=== PATIENT | male | born 1960 | race African-American/Black ===

== ENCOUNTER 2018-10-13 05:34 | Inpatient (IN) ==
--- NOTE | 2018-09-30 08:16 | PAT Medication Instructions ---
Medication Instructions Date of Service September 30, 2018 Home Medications alfuzosin ER 10 mg tablet,extended release 24 hr 10 mg PO QAM atorvastatin 20 mg tablet 20 mg PO QAM fluoxetine 20 mg capsule 20 mg PO QAM losartan 25 mg tablet 25 mg PO QAM montelukast 10 mg tablet 10 mg PO QAM DO NOT take the morning of surgery losartan 25 mg tablet 25 mg PO QAM montelukast 10 mg tablet 10 mg PO QAM Take morning of surgery With a small sip of water, OTHERWISE NOTHING TO EAT OR DRINK AFTER MIDNIGHT: alfuzosin ER 10 mg tablet,extended release 24 hr 10 mg PO QAM atorvastatin 20 mg tablet 20 mg PO QAM fluoxetine 20 mg capsule 20 mg PO QAM Other Notes If you have any questions please call us at [phone] or [phone] or [phone] or [phone]
--- NOTE | 2018-09-30 09:24 | Anesthesiology Consultation ---
Date of Service September 30, 2018 Assessment & Plan (1) Encounter for pre-operative examination: Chart Review Chart Review: Acceptable Risk for Surgery and Patient seen in Pre Admission Testing Teaching & Discussion Instructed NPO after midnight before surgery, except medications with 15 cc of water. Medication instructions provided according to the PAT guidelines. History Surgery Operation Date: 10/13/18 12:15 Proposed Procedures p Laparoscopic Robotic Assisted Radical Retropubic Prostatectomy, Possible Open, Possible Pelvic Lymph Node Dissection, Possible Suprapubic Cath Placement - Fausto Oscar MD Height/Weight Height: 5 ft 5 in Weight: 85.6 kg Allergies Allergy/AdvReac Type Severity Reaction Status Date / Time nickel Allergy Unknown ITCHINESS Verified 09/29/18 14:21 phenytoin [From Dilantin] Allergy Unknown BAD Unverified 09/29/18 13:57 REACTION TOO, WBC COUNT WENT HIGH Additional Notes: *pt was given Dilantin for suspected seizure but ultimately seizure was ruled out. Medications Home Medications Medication Instructions Recorded Confirmed Last Taken alfuzosin ER 10 mg tablet,extended 10 mg PO QAM 09/16/18 09/29/18 09/29/18 release 24 hr atorvastatin 20 mg tablet 20 mg PO QAM 09/16/18 09/29/18 09/29/18 fluoxetine 20 mg capsule 20 mg PO QAM 09/16/18 09/29/18 09/29/18 losartan 25 mg tablet 25 mg PO QAM 09/16/18 09/29/18 09/29/18 montelukast 10 mg tablet 10 mg PO QAM 09/16/18 09/29/18 09/29/18 Past Medical History Medical History Anxiety and depression Chronic sinus infection History of positive PPD HX CHEST XRAY, NO HX BIOPSY - S/p prophylactic tx with INH DENIES HX OF ACTIVE TB INFECTION Hypercholesteremia Hypertension Pre-diabetes Prostate cancer Diagnosed 05/20/18 - King 4+5, 3+4, 3+3 Snores Pt reports he was supposed to have a sleep study years ago but never did. Exercise / Class Metabolic Activity II 4-5 Yardwork/Stairs/Walk up hill Past Family History Family History Other Family history of cancer Past Surgical History Surgical History History of appendectomy History of colonoscopy History of oral surgery WISDOM TEETH History of oral surgery 5 TEETH EXTRACTION Past Anesthesia History No Hx of Anesthesia Complications and No Family Hx of Anesthesia Complications History of PONV No Hx of PONV and No Hx of Motion Sickness Social History Smoking Status: Current every day smoker tobacco type: cigarettes Smoking cigarettes per day: 12-15 CIGS/DAY - ADVISED NPO Do You Dip or Chew Tobacco: No Hx Alcohol Use: Yes Alcohol type: beer alcohol intake frequency: 3 or more drinks per day Hx Substance Use: Yes substance use type: marijuana Last Used Substance Other:: LAST USE 09/28/18, AVERAGE USE ONCE A DAY Review of Systems Pt denies any recent chest pain, shortness of breath, palpitations, cough, fever or URI. +chronic sinus congestion Physical Exam Vital Signs BP: 128/82 P: 70bpm SPO2: 98% RA T: 98.1 F R: 12 ENMT Mouth: no dental restorations, no chipped teeth and no loose teeth Thyromental Distance: > or= 3.5 Finger Breadths (3.5) Mallampati Class: III Missing several molars. Neck normal visual inspection; neck extension not limited Respiratory normal respiratory effort Auscultation: lungs clear to auscultation bilaterally Cardiovascular Rate/Rhythm: regular rate and regular rhythm Heart Sounds: no murmur Vessels: no carotid bruit Extremities: no edema Testing Laboratory Results 09/30/18 09:30 09/30/18 09:30 Urine Color Yellow 09/30/18 09:30 Urine Appearance Clear (Clear) 09/30/18 09:30 Urine pH 7.0 (4.5-7.5) 09/30/18 09:30 Ur Specific [place] 1.008 (1.000-1.030) 09/30/18 09:30 Urine Protein Negative (Negative) 09/30/18 09:30 Urine Glucose (UA) Negative (Negative) 09/30/18 09:30 Urine Ketones Negative (Negative) 09/30/18 09:30 Urine Nitrite Negative (Negative) 09/30/18 09:30 Ur Leukocyte Esterase Negative (Negative) 09/30/18 09:30 Blood Type O Positive 09/30/18 09:30 Antibody Screen NEGATIVE 09/30/18 09:30 Electrocardiogram Date: 09/30/18 Findings: + NSR @ (64) Minimal voltage criteria for LVH, may be normal variant. Chest X-Ray Date: 09/30/18 Findings: + NAD
--- NOTE | 2018-09-30 09:45 | XRay Report ---
TWO VIEW CHEST CLINICAL HISTORY: Preoperative examination. FINDINGS: PA and lateral chest radiographs are compared to study dated 01/09/2008. The cardiomediastin al silhouette is unremarkable. The lungs and pleural spaces are clear. There is no pneumothorax. The bony thorax appears intact. IMPRESSION: No active disease in the chest. Electronically signed by: Álvaro De La O M.D. 09/30/2018 9:44 AM
[2018-09-30 10:54] LABS: Basophils # (auto) 0.06 K/uL (0-0.2); Basophils % (auto) 0.6 %; Eosinophils # (auto) 0.06 K/uL (0-0.5); Eosinophils % (auto) 0.6 %; Hematocrit (blood only) 41.4 % (42-52); Hemoglobin 14.1 g/dL (14.0-18.0); Immature Granulocytes # (auto) 0.04 K/uL (0.00-0.02); Immature Granulocytes % (auto) 0.4 %; Lymphocytes # (auto) 2.23 K/uL (1.2-3.4); Mean Corpuscular Hgb Conc 34.1 g/dL (32-36); Mean Corpuscular Volume 90.8 fL (80-100); Mean Platelet Volume 9.2 fL (7.4-10.4); Monocytes # (auto) 0.81 K/uL (0.11-0.59); Monocytes % (auto) 8.7 %; Neutrophils # (auto) 6.11 K/uL (1.4-6.5); Neutrophils % (auto) 65.7 %; Platelet Count 230 K/uL (130-400); RDW Coefficient of Variation 12.8 % (11.5-14.5); RDW Standard Deviation 42.3 fL (36.4-46.3); Red Blood Count 4.56 M/uL (4.7-6.1); White Blood Count 9.31 K/uL (4.8-10.8)
[2018-09-30 11:01] LABS: Appearance Urine Clear (Clear); Bilirubin Urine Negative (Negative); Blood Urine Negative (Negative); Color Urine Yellow; Glucose Urine UA Negative (Negative); Ketones Urine Negative (Negative); Leukocyte Esterase Urine Negative (Negative); Nitrite Urine Negative (Negative); Protein Urine Negative (Negative); Specific Gravity Urine 1.008 (1.000-1.030); Urobilinogen Urine Negative (Negative)
[2018-09-30 11:02] LABS: BUN Creatinine Ratio 18.2 (10-20); Calcium 9.3 mg/dl (8.5-10.1); Creatinine Clr Calc Pharmacy 93.2 ml/min; Est GFR (African American) 110.5; Est GFR (Non-African American) 95.4; Potassium 4.1 mmol/L (3.5-5.1)
[2018-10-13] MEDS ORDERED: HEPARIN SOD 5,000 UNIT/0.5 ML VIAL SQ SCH (06:00)
[2018-10-13] MEDS ORDERED: CEFAZOLIN 2000MG 2,000 MG/15 ML SYR IV SCH (06:00)
[2018-10-13] MEDS ORDERED: LR 15ML/HR IV SCH (06:00)
[2018-10-13] MEDS ORDERED: fentaNYL citrate 100 MCG/2 ML VIAL ONE ×2 (06:40→10:54)
[2018-10-13] MEDS ORDERED: HYDROmorphone INJ 2 MG/ML SYR/VIAL ONE (06:40)
[2018-10-13] MEDS ORDERED: SODIUM CHLORIDE 0.9% INJ 10 ML VIAL ONE ×2 (06:40→10:20)
[2018-10-13] MEDS ORDERED: MIDAZOLAM HCL 1 MG/ML 2ML VIAL ONE (06:40)
[2018-10-13] MEDS ORDERED: ACETAMINOPHEN 1000 MG/100 ML IV IV ONE (06:47)
[2018-10-13] MEDS ORDERED: KETAMINE HCL INJ 50 MG/ML 10 ML VIAL ONE (06:49)
[2018-10-13] MEDS ORDERED: PROPOFOL IV EMULSION 10 MG/ML 20 ML VIAL IV ONE (06:51)
[2018-10-13] MEDS ORDERED: ARTIFICIAL TEARS OP OINT 3.5 GM TUBE ONE (06:51)
[2018-10-13] MEDS ORDERED: LIDOCAINE HCL 2% 2 ML VIAL/AMP(20MG/ML) INFIL ONE (06:51)
[2018-10-13] MEDS ORDERED: DEXAMETHASONE SOD INJ 4 MG/ML VIAL ONE (06:51)
[2018-10-13] MEDS ORDERED: LARYING-O-JET KIT (LTA) ONE (06:51)
[2018-10-13] MEDS ORDERED: ROCURONIUM BROMIDE 10 MG/ML 5 ML VIAL ONE ×2 (06:51→08:36)
[2018-10-13] MEDS ORDERED: ONDANSETRON INJ 2 MG/ML 2 ML VIAL ONE (06:51)
[2018-10-13] MEDS ORDERED: BUPIVACAINE 0.5 % 5 MG/1 ML MPF 30ML VIAL ONE (06:56)
[2018-10-13] MEDS ORDERED: PROMETHAZINE HCL 6.25 MG in SODIUM CHLORIDE 0.9% 50 ML IV PRN (07:24)
[2018-10-13] MEDS ORDERED: ONDANSETRON INJ 2 MG/ML 2 ML VIAL IV PRN ×2 (07:24→14:00)
[2018-10-13] MEDS ORDERED: ATROPINE SULFATE 0.1 MG/ML 10ML SYR IV PRN (07:24)
[2018-10-13] MEDS ORDERED: fentaNYL citrate 100 MCG/2 ML VIAL IV PRN (07:24)
[2018-10-13] MEDS ORDERED: ePHEDrine sulfate 50 MG/ML AMP IV PRN (07:24)
--- NOTE | 2018-10-13 07:27 | History & Physical Bridge Note ---
Date of Service October 13, 2018 History & Physical Bridge Note I have examined the patient, reviewed the History & Physical and in the interval since the performance of the History & Physical I have noted the following changes of clinical significance: no changes noted
[2018-10-13] MEDS ORDERED: BELLADONNA/OPIUM SUPP 60 MG SUPP PR ONE (08:05)
[2018-10-13] MEDS ORDERED: NEOSTIGMINE METHYLSULFATE 5 MG/5 ML SYR ONE (08:28)
[2018-10-13] MEDS ORDERED: GLYCOPYRROLATE 0.2 MG/ML VIAL ONE (08:28)
[2018-10-13] MEDS ORDERED: BELLADONNA/OPIUM SUPP 60 MG SUPP PR PRN (09:44)
[2018-10-13] MEDS ORDERED: CEFAZOLIN 250 MG/ML 1 GM VIAL ONE (10:20)
[2018-10-13] MEDS ORDERED: ePHEDrine sulfate 50 MG/ML SYR ONE (10:24)
[2018-10-13] MEDS ORDERED: PHENYLEPHRINE 100MCG/ML 5ML SYR ONE (10:24)
[2018-10-13] MEDS ORDERED: FLOSEAL HEMOSTATIC MATRIX 10ML TOP ONE (11:03)
--- NOTE | 2018-10-13 12:09 | Operative Report ---
Post Operative Report Pre & Post Diagnosis Operation Date: 10/13/18 07:30 Pre-Op Diagnosis: Prostate Cancer Post-Op Diagnosis: Prostate Cancer Procedure Operation Date: 10/13/18 07:30 Actual Procedures p Laparoscopic Robotic Assisted Radical Retropubic Prostatectomy, Pelvic Lymph Node Dissection, lysis of adhesions - Fausto Oscar MD Surgeon Jose A Oscar MD Physician Office Clin Asst Giulia Copeland Estimated Blood Loss 200 Findings Consistent with Post-Op Diagnosis Specimens 1. prostate and seminal vesicles 2. Periprostatic fat 3. L pelvic lymph nodes 4. R pelvic lymph nodes Description of Procedure The patient was identified in the preoperative holding area, appropriate informed consents were reviewed and completed, and he was transported to the operating suite. Subcutaneous heparin was administered in the pre-operative holding area. Upon arrival in the operating suite, he received appropriate antibiotics and general anesthesia. He was positioned in dorsal lithotomy, a B&O suppository was inserted after digital rectal exam, and he was prepped and draped in standard fashion. A Pinto catheter was inserted in the sterile field. A Veress needle was passed per umbilicus with uniform insufflation of the abdomen to 15mmHg. He was placed in steep Trendelenburg position. A periumbilical incision was then made to accommodate a 12mm Visiport with 10mm 0degree laparoscope. Inspection of the abdomen was carried out, and there was no evidence of traumatic entry or injury secondary to the Veress needle. After confirming a clear anterior abdominal wall, ports were subsequently placed in standard robotic prostatectomy fashion without incident. To begin the robotic portion of the case, the left lateral aspect of the sigmoid was mobilized off of the left pelvic side wall to allow the pouch of Adal to be appropriately visualized. He additionally had a hx of a ruptured appendicitis and had substantial pelvic adhesions on the right. I gradually and cautiously worked my way through these adhesions until the right pelvic side wall was visualized. Approx 30min of lysis of adhesions was required in total. I then made an incision in the pouch of Adal, overlying the seminal vesicles. Both SVs as well as the ampullae of the vasa were entirely dissected, with the vasa transected 3cm from the prostate. The medial umbilical ligaments were then controlled with bipolar electrocautery just inferior to the umbilicus. Following cauterization, they were divided utilizing monopolar cautery. A peritoneal incision was carried from this location to the medial aspect of the internal inguinal rings bilaterally with care to avoid opening through the ring. This incision was concluded when the vas deferens was reached. Dissection of the bladder and prostate off of the posterior aspect of the pubic arch was completed allowing full visualization of the prostate. The fat overlying the prostate was removed en bloc and passed off the table as a specimen labeled "periprostatic fat". The endopelvic fascia was cleared during this portion of the procedure, and subsequently opened - first on the right and then the left. The incision through the endopelvic fascia began near the prostate-bladder junction and was carried to the apex with extreme care to preserve all lateral levator musculature as well as the periurethral musculature and sphincter complex. The puboprostatic ligaments were thinned slightly bilaterally before placing a 0-Vicryl figure of 8 stitch around the DVC. The lymph node dissection was then conducted. External iliac vessels were identified on the pelvic side wall. The packet of fat and lymphatic tissue that resides just under the iliac vein was elevated and off of the vein with a split and roll technique. The packet was dissected laterally to the circumflex vein and distally to the obturator nerve which was preserved. The proximal aspect of the packet was carried towards the bifurcation of the iliac vessels. A combination of monopolar and bipolar cautery were used to assist with control. Clips were placed at the proximal and distal aspects of the packet prior to transection. After completing the dissection on both sides, the packets were collected and passed off of the table as specimens labeled "pelvic lymph nodes". My attention then returned to the prostate, with identification of the bladder neck aided by gentle traction on the Pinto catheter and lateral to medial pressure at the presumed level of the bladder neck with the robotic instruments. Of note, he had a relatively short prostate, and substantial detrusor overlying the prostate - extending to the true apex of the prostate. He additionally had a visible shift of his catheter balloon to the lateral aspect implying a median lobe. An anterior cystotomy was made, the Pinto balloon deflated and the catheter guided through the incision to allow anterior retraction. I attempted to preserve maximal bladder neck musculature as I circumferentially dissected around the bladder neck. He did prove to have a small intravesical median lobe and I carefully dissected under it. After incision through the posterior aspect of the mucosa, the dissection was carried through detrusor muscle until the bilateral ampullae of the vasa were identified. The previously dissected vasa and SVs were brought through the incision and used to elevated the prostate anteriorly. In the midst of this dissection, the SVs and vasa were from the base of the prostate. A posterior plane behind the prostate was then developed - splitting Denonvilliers's fascia. This dissection was carried as far as possible towards the apex as well as far as possible laterally. An incision in the lateral prostatic fascia was then made bilaterally to facilitate control of the vascular pedicles. The pedicles were each controlled with a series of Weck clips. The neurovascular bundles were identified with a moderately aggressive nerve sparing. The apical attachments of the prostate were remaining at that stage. The DVC was divided with bipolar electrocautery. Ijeoma-prostatic tissue incised with sharp dissection and monopolar cautery. Maximal urethral length was preserved before dividing the urethra sharply. The prostate was entirely freed at that point, and collected in an EndoCatch bag before being moved out of the field of vision. Hemostasis was confirmed and anastomosis of the bladder and urethra was completed utilizing a double armed V- Lock stitch. A new Pinto catheter was inserted and the anastomosis tested with irrigation. There was no evidence of leak. FloSeal coagulant was placed around the anastomosis. A KATIE was guided through the left lateral most port. The robot was undocked, the specimen extracted through expansion of the ijeoma- umbilical camera port. The fascia was closed with a series of 0-PDS figure of 8 stitches. The right operations manager assistant port was closed in two layers - with a figure of 8 0-Vicryl to reapproximate the fascia followed by 4-0 Monocryl to close the skin. Monocryl was used to close all other skin incisions. All wounds were dressed with Dermabond. The case was concluded and the patient taken to the PACU in stable condition. Giulia Copeland assisted throughout from incision to closure. I attest to the content of the Intraoperative Record and any orders documented therein. Any exceptions are noted below.
[2018-10-13 12:51] LABS: Basophils # (auto) 0.02 K/uL (0-0.2); Basophils % (auto) 0.2 %; Hematocrit (blood only) 37.8 % (42-52); Immature Granulocytes # (auto) 0.04 K/uL (0.00-0.02); Immature Granulocytes % (auto) 0.3 %; Lymphocytes # (auto) 0.92 K/uL (1.2-3.4); Lymphocytes % (auto) 7.6 %; Mean Corpuscular Volume 91.3 fL (80-100); Mean Platelet Volume 7.9 fL (7.4-10.4); Monocytes # (auto) 0.24 K/uL (0.11-0.59); Neutrophils # (auto) 10.86 K/uL (1.4-6.5); Neutrophils % (auto) 89.9 %; Platelet Count 158 K/uL (130-400); RDW Coefficient of Variation 12.7 % (11.5-14.5); RDW Standard Deviation 42.5 fL (36.4-46.3); Red Blood Count 4.14 M/uL (4.7-6.1); White Blood Count 12.08 K/uL (4.8-10.8)
--- NOTE | 2018-10-13 12:56 | Anesthesiology Progress Note ---
Date of Service October 13, 2018 Anesthesia Post Procedure Vital Signs Vital Signs: Temp Pulse Pulse Resp BP Pulse Ox 10/13/18 12:45 75 19 133/82 100 10/13/18 12:35 80 17 134/84 100 10/13/18 12:25 78 24 118/82 100 10/13/18 12:15 77 15 112/78 100 10/13/18 12:05 76 18 128/78 100 10/13/18 11:57 36.4 C L 86 16 104/70 100 10/13/18 06:19 36.5 C 61 20 127/81 98 Transfer of Care Handoff Completed per policy Notes Mental Status: alert / awake / arousable Patient Amnestic to Procedure: Yes Nausea / Vomiting: adequately controlled Pain: adequately controlled Airway Patency, RR, SpO2: stable & adequate BP & HR: stable & adequate Hydration State: stable & adequate Anesthetic Complications: no major complications apparent
[2018-10-13 13:08] LABS: BUN Creatinine Ratio 14.1 (10-20); Calcium 8.5 mg/dl (8.5-10.1); Creatinine Clr Calc Pharmacy 86.6 ml/min; Est GFR (African American) 103.9; Est GFR (Non-African American) 89.6; Potassium 4.1 mmol/L (3.5-5.1)
[2018-10-13 13:24] LABS: Mean Corpuscular Hgb Conc 34.4 g/dL (32-36)
[2018-10-13] MEDS ORDERED: OXYCODONE HCL IR 5 MG TAB (IMMEDIATE RELEASE) PO PRN (14:00)
[2018-10-13] MEDS ORDERED: MoRPHine SULFATE 4 MG/ML 1 ML CARP\\VIAL IV PRN (14:00)
[2018-10-13] MEDS ORDERED: ACETAMINOPHEN 1,000 MG/100 ML VIAL IV PRN (14:00)
[2018-10-13] MEDS: LACTATED RINGER'S 1,000 ML IV SCH ×2 (14:11→22:14)
[2018-10-13] MEDS: FAMOTIDINE 20 MG in SYRINGE 3 ML IV SCH (14:27)
[2018-10-13 14:59] LABS: Prothrombin Time 10.3 Seconds (9.0-12.0)
[2018-10-13] MEDS: CEFAZOLIN 2000MG 2,000 MG/15 ML SYR IV SCH ×2 (16:06→23:42)
[2018-10-13] MEDS: DOCUSATE SODIUM 100 MG CAP PO SCH (20:16)
[2018-10-13] MEDS: HEPARIN SOD 5,000 UNIT/0.5 ML VIAL SQ SCH (20:17)
[2018-10-14] MEDS: FAMOTIDINE 20 MG in SYRINGE 3 ML IV SCH ×2 (01:57→13:24)
[2018-10-14] MEDS: LACTATED RINGER'S 1,000 ML IV SCH (06:12)
[2018-10-14] MEDS: OXYCODONE HCL IR 5 MG TAB (IMMEDIATE RELEASE) PO PRN ×2 (06:14→11:56)
[2018-10-14 06:46] LABS: Basophils # (auto) 0.03 K/uL (0-0.2); Basophils % (auto) 0.2 %; Eosinophils # (auto) 0.01 K/uL (0-0.5); Eosinophils % (auto) 0.1 %; Hematocrit (blood only) 37.7 % (42-52); Hemoglobin 12.7 g/dL (14.0-18.0); Immature Granulocytes # (auto) 0.03 K/uL (0.00-0.02); Immature Granulocytes % (auto) 0.2 %; Lymphocytes # (auto) 1.53 K/uL (1.2-3.4); Lymphocytes % (auto) 10.9 %; Mean Corpuscular Hgb Conc 33.7 g/dL (32-36); Mean Corpuscular Volume 90.2 fL (80-100); Mean Platelet Volume 8.6 fL (7.4-10.4); Monocytes # (auto) 1.38 K/uL (0.11-0.59); Monocytes % (auto) 9.8 %; Neutrophils % (auto) 78.8 %; Platelet Count 193 K/uL (130-400); RDW Coefficient of Variation 12.6 % (11.5-14.5); Red Blood Count 4.18 M/uL (4.7-6.1); White Blood Count 14.08 K/uL (4.8-10.8)
[2018-10-14 07:22] LABS: BUN Creatinine Ratio 13.1 (10-20); Calcium 8.4 mg/dl (8.5-10.1); Creatinine Clr Calc Pharmacy 96.9 ml/min; Est GFR (African American) 112.7; Est GFR (Non-African American) 97.2
[2018-10-14] MEDS: HEPARIN SOD 5,000 UNIT/0.5 ML VIAL SQ SCH (08:11)
[2018-10-14] MEDS: DOCUSATE SODIUM 100 MG CAP PO SCH (08:12)
[2018-10-14] MEDS: CEFAZOLIN 2000MG 2,000 MG/15 ML SYR IV SCH (08:14)
--- NOTE | 2018-10-14 08:24 | Urology Progress Note ---
Date of Service October 14, 2018 Assessment & Plan (1) Prostate cancer: Postop day #1 status post robotic prostatectomy Ambulate Continue clear liquids KATIE removal Home with Pinto later today presuming he feels well and is ambulatory Subjective Moderate pain, but feeling well overall No bloating, no nausea, no vomiting Has not ambulated yet Physical Exam Physical Exam: Incisions appropriate, scant output from the KATIE Results & Data Vital Signs (Past 12 Hours) Vital Signs Temp Pulse Pulse Resp BP Pulse Ox 10/14/18 07:52 37.1 C 82 18 148/90 H 95 10/14/18 03:45 37.7 C H 85 132/85 95 10/13/18 23:30 37.3 C 83 18 142/85 H 95 PG Care Time/CCT Total # of Minutes Spent Total Time Spent with Patient: Total time spent is greater than 50% in coordination of care (as documented) at patient's floor/unit and/or counseling patient:
[2018-10-14] MEDS ORDERED: MONTELUKAST SODIUM 10 MG TABLET PO SCH (09:00)
[2018-10-14] MEDS ORDERED: ATORVASTATIN 20 MG TAB PO SCH (09:00)
[2018-10-14] MEDS ORDERED: LOSARTAN POTASSIUM 25 MG TAB PO SCH (09:00)
[2018-10-14] MEDS ORDERED: FLUOXETINE HCL 20 MG CAP PO SCH (09:00)
--- NOTE | 2018-10-14 10:18 | Anesthesiology Progress Note ---
Date of Service October 14, 2018 Anesthesia Post Procedure Vital Signs Vital Signs: Temp Pulse Pulse Resp BP Pulse Ox 10/14/18 07:52 37.1 C 82 18 148/90 H 95 10/14/18 03:45 37.7 C H 85 132/85 95 10/13/18 23:30 37.3 C 83 18 142/85 H 95 10/13/18 19:05 71 16 142/85 H 99 10/13/18 16:47 36.6 C 76 16 143/89 H 100 10/13/18 15:39 76 16 136/87 100 10/13/18 14:45 36.5 C 77 16 136/85 100 10/13/18 14:15 89 16 134/87 96 10/13/18 13:50 36.6 C 84 16 135/85 98 10/13/18 13:36 36.4 C L 83 19 124/82 100 10/13/18 13:20 77 19 126/87 100 10/13/18 13:05 36.4 C L 84 16 135/89 10/13/18 12:55 79 14 127/88 100 10/13/18 12:45 75 19 133/82 100 10/13/18 12:35 80 17 134/84 10/13/18 12:25 78 24 118/82 100 10/13/18 12:15 77 15 112/78 10/13/18 12:05 76 18 128/78 100 10/13/18 11:57 36.4 C L 86 16 104/70 100 Notes Mental Status: alert / awake / arousable and participated in evaluation Nausea / Vomiting: adequately controlled Pain: adequately controlled Airway Patency, RR, SpO2: stable & adequate BP & HR: stable & adequate Hydration State: stable & adequate
--- NOTE | 2018-10-18 08:45 | Discharge Summary ---
Date of Service October 18, 2018 Principal Diagnosis prostate cancer Discharge Data Allergies Allergy/AdvReac Type Severity Reaction Status Date / Time nickel Allergy Unknown ITCHINESS Verified 10/15/18 10:23 phenytoin [From Dilantin] Allergy Unknown BAD Verified 10/15/18 10:23 REACTION TOO, WBC COUNT WENT HIGH Procedures Performed Operation Date: 10/13/18 07:30 Actual Procedures p Laparoscopic Robotic Assisted Radical Retropubic Prostatectomy, Pelvic Lymph Node Dissection, (Not Applicable) - Fausto Oscar MD s Suprapubic Catheter Placement(Left) - Fausto Oscar MD Hospital Course (1) Prostate cancer: admitted for prostatectomy. details of the surgery as dictate in the operative note. in summary, he tolerated the procedure well and progressed appropriately overnight. he was ambulatory and tolerating a diet on the morning of pod#1. his urine was clear and his pain controlled. his drain was removed and he was discharged home in stable condition. Total Time Total Time Spent Total Time Spent (In Minutes): 20 Total Time Includes: Examination of the Patient and Discharge Planning Discharge Plan Discharge Items Patient Disposition: Home - Self-Care Reason For Visit: Prostate Cancer Discharge Diagnosis: Prostate cancer Discharge Goals: Improve disease control and Therapeutic intervention Activity: Resume your previous activity Lifting: No more than 10 pounds Bathing Comment: Shower tomorrow. No soaking in tub/pool. Do not scrub or pick surgical glue Sexual Activity: Wait until after follow-up appointment Exercise/Sports: None Exercise Comment: Walking and stairs in your home are ok. Driving/Machine Use Comment: Please do not drive while taking Narcotic pain medication. Non-emergency contact: Urologist Call non-emergency contact if: you have any medication questions, your pain is concerning for you, your temperature is above 101, your wound has increased redness, your wound has increased drainage and your wound pain has increased Follow-up/Referrals: Dary Cobian DO [Primary Care Provider] - Diet: Regular and See below Diet Comment: Gradually increase your diet as tolerated. Addtl Provider Instructions: Please keep all follow up appointments at the urology office as scheduled. Contact office at [phone] if any questions or concerns. Antibiotic: you will take this around the time that we remove your catheter. Catheter removal is Friday10/23/18, begin taking your antibiotic (Cipro) in the morning on 10/22/18 and finish as prescribed. Pain: Take Tylenol per dosing instructions on bottle for mild pain. Take pain medication (Oxycodone) every 6 hours as needed for moderate/severe pain. Bowels: Take stool softener (Colace) twice daily for 2 weeks, then as needed for constipation. Pinto: clean around catheter twice daily with soap and water. Call office right away if catheter gets pulled or displaced for any reason. Thanks for allowing us to participate in your care! Prescriptions: New docusate sodium [Colace] 100 mg capsule 100 mg PO BID PRN (Reason: constipation) Qty: 60 RF: 0 oxycodone 5 mg tablet 5 mg PO Q6H PRN (Reason: pain) Qty: 14 RF: 0 Continued atorvastatin 20 mg tablet 20 mg PO QAM RF: 0 losartan 25 mg tablet 25 mg PO QAM RF: 0 fluoxetine [Prozac] 20 mg capsule 20 mg PO QAM RF: 0 montelukast [Singulair] 10 mg tablet 10 mg PO QAM RF: 0 Discontinued alfuzosin 10 mg tablet extended release 24 hr 10 mg PO QAM RF: 0 Stand-Alone Forms: [facility], [facility]/Other Patient Handouts: Catheter Indwelling Urinary Dc Discharge Orders: Discharge Order (Routine); Ordered 10/14/18 Ordered By: Giulia Copeland Admission Data Admit Date/Time: 10/13/18 11:52 Attending Provider: Fausto Oscar Admit Provider: Fausto Oscar Primary Care Provider: Dary Cobian Service: Surgical Services Other Interventions: Discharge Summary Assessment (RN) Last Done: 10/14/18 13:29 Pending Studies at Discharge: Yes Studies:: Pathology DC Date/Time DO NOT enter until pt leaves facility: 10/14/18 16:18
== END 2018-10-14 16:18 | disposition home or self-care (01) | DRG 707 ==
LOC: ASU 05:34 → 3N 11:52